=== PATIENT | male | born 1995 | race Two or more races ===

== ENCOUNTER 2019-11-18 22:04 | Emergency (ER) | payer MEDICAID ==
[~2019-11-18] VITALS: Ht 167.6 cm; Wt 72.6 kg
[2019-11-18] MEDS ORDERED: LET SOLN TOPICAL 8 ML UDC TP ONE (22:24)
[2019-11-18] MEDS ORDERED: ACETAMINOPHEN 325 MG TABLET ONE (22:24)
[2019-11-18] MEDS ORDERED: OXYMETAZOLINE HCL NASAL SPRAY 30 ML BOTTLE NS ONE (22:24)
[2019-11-18] MEDS ORDERED: TDAP [DIPH/PERTUSSIS/TET] 0.5 ML VIAL IM ONE (22:25)
[2019-11-18] MEDS: OXYMETAZOLINE HCL NASAL SPRAY 30 ML BOTTLE NS ONE (22:32)
[2019-11-18] MEDS: TDAP [DIPH/PERTUSSIS/TET] 0.5 ML VIAL IM ONE (22:34)
[2019-11-18] MEDS: ACETAMINOPHEN 325 MG TABLET PO ONE (22:34)
[2019-11-18] MEDS: LET SOLN TOPICAL 8 ML UDC TP ONE (22:57)
[2019-11-18] MEDS ORDERED: GELATIN SPONGE,ABSORBABLE 1 SPONGE SPONGE TP ONE ×2 (23:21→23:29)
[2019-11-18] MEDS: GELATIN SPONGE,ABSORBABLE 1 SPONGE SPONGE TP ONE (23:27)
[2019-11-18] MEDS ORDERED: LIDOCAINE 1% INJ 50 ML MDV IJ ONE (23:28)
[2019-11-18] MEDS ORDERED: LIDOCAINE 1%-EPI 1:100,000 20 ML VIAL ONE (23:29)
[2019-11-18] MEDS ORDERED: SILVER NITRATE APPLICATOR 1 EA BOX ONE (23:46)
[2019-11-18] MEDS: SODIUM BICARBONATE 5 ML VIAL MC ONE (23:57)
[2019-11-18] MEDS: SILVER NITRATE APPLICATOR 1 EA BOX TP ONE (23:57)
[2019-11-18] MEDS: LIDOCAINE HCL/PF 1% 30 ML VIAL TP ONE (23:57)
[2019-11-18] MEDS ORDERED: CEPHALEXIN MONOHYDRATE 500 MG CAPSULE PO ONE (23:59)
[2019-11-19] MEDS ORDERED: ONDANSETRON 4 MG TAB.RAPDIS ONE (00:08)
[2019-11-19] MEDS: CEPHALEXIN MONOHYDRATE 500 MG CAPSULE PO ONE (00:10)
[2019-11-19] MEDS: ONDANSETRON 4 MG TAB.RAPDIS SL ONE (00:10)
[2019-11-19 00:18] VITALS: BP 137/74
== END 2019-11-19 00:19 | disposition home or self-care (01) ==
LOC: ER 22:10
DX: S01.21XA Laceration without foreign body of nose, initial encounter (principal); S40.022A Contusion of left upper arm, initial encounter; S40.021A Contusion of right upper arm, initial encounter; F10.10 Alcohol abuse, uncomplicated; R04.0 Epistaxis; R51 Headache; Y90.9 Presence of alcohol in blood, level not specified; W01.0XXA Fall on same level from slipping, tripping and stumbling without subsequent striking against object, initial encounter; Y93.89 Activity, other specified; Y92.89 Other specified places as the place of occurrence of the external cause; Y99.8 Other external cause status
CPT/HCPCS: 12011; 70450; 70486; 73060; 73070; 90471; 90715; 99285; A6403 ×3; J3490 ×3; Q0162

== ENCOUNTER 2019-11-21 11:57 | Emergency (ER) | payer MEDICAID ==
[~2019-11-21] VITALS: Ht 152.4 cm; Wt 66.7 kg
--- NOTE | 2019-11-21 12:38 | NUR ---
Patient discharged to home in stable condition. Written and verbal after care instructions given. Patient verbalizes understanding of instruction.
[2019-11-21 12:39] VITALS: BP 141/94
== END 2019-11-21 12:42 | disposition home or self-care (01) ==
LOC: ER 12:05
DX: S01.21XD Laceration without foreign body of nose, subsequent encounter (principal); W18.39XD Other fall on same level, subsequent encounter